=== PATIENT | female | born 1970 | race Two or more races ===

== ENCOUNTER 2024-05-16 03:58 | Inpatient (IN) | payer BC, OTHER ==
[~2024-05-16] VITALS: Ht 157.5 cm; Wt 181.0 kg
[2024-05-16 04:30] LABS: Basophils # (auto) 0.1 10 ^3/uL (0-0.2); Basophils % (auto) 0.2 % (0.0-2.0); Eosinophils # (auto) 0 10 ^3/uL (0-0.8); Hematocrit 38.5 % (36.0-46.0); Hemoglobin 12.8 g/dL (12.2-16.2); Lymphocytes # (auto) 1.5 10 ^3/uL (0.4-5.4); Lymphocytes % (auto) 6.6 % (10.0-50.0); Mean Corpuscular Hgb Conc. 33.4 g/dL (32.0-36.0); Monocytes % (auto) 4.7 % (0.0-12.0); Neutrophils # (auto) 19.6 10 ^3/uL (1.6-8.6); Neutrophils % (auto) 88.5 % (37.0-80.0); Nucleated Red Blood Cells % 0.1 %; Red Blood Cells 4.42 10^6/uL (4.0-5.20); Red Cell Distribution Width 14.7 % (11.8-14.3); White Blood Cell 22.2 10^3/uL (4.4-10.8)
[2024-05-16 04:39] LABS: Alkaline Phosphatase 79 U/L (46-116); Anion Gap 8 (5-15); Aspartate Aminotransferase < 8 U/L (13-40); BUN/Creatinine Ratio 20.5 (10.0-20.0); Blood Urea Nitrogen 25 mg/dL (9-23); Calcium 9.7 mg/dL (8.7-10.4); Carbon Dioxide 25 mmol/L (20-30); Chloride 96 mmol/L (98-107); Glucose 294 mg/dL (74-106); Lipase 41 U/L (12-53); Magnesium 1.9 mg/dL (1.6-2.6); Potassium 4.1 mmol/L (3.5-5.1); Sodium 129 mmol/L (136-145)
[2024-05-16 04:40] LABS: Bilirubin, Total 0.9 mg/dL (0.2-1.0); Total Protein 7.9 g/dL (5.7-8.2)
[2024-05-16 04:43] LABS: Alanine Aminotransferase < 9 U/L (7-40)
[2024-05-16 04:50] LABS: INR 1.03 (0.9-1.15); Partial Thromboplastin Time 29.9 SEC (24.5-34.5); Prothrombin Time 10.9 sec (9.3-11.8)
[2024-05-16 05:22] LABS: Urine Bacteria FEW /hpf (None Seen); Urine Blood Negative /uL (Negative); Urine Clarity Clear (Clear); Urine Color Light-Yellow (Yellow); Urine Protein, UAD 2+ (Negative); Urine Specific Gravity 1.022 (1.001-1.035); Urine Urobilinogen Normal (Negative); Urine WBC 9 /hpf (0 - 5); Urine pH 5.5 (5.0-9.0)
[2024-05-16] MEDS: PIPERACILLIN-TAZOB 3.375GM 100 ML IV ONE ×2 (07:25→16:42)
[2024-05-16] MEDS: KETOROLAC TROMETH 30 MG/ML 1ML VIAL IV ONE (07:30)
[2024-05-16 07:51] VITALS: PULSE 84; RESP 14; O2SAT 99
[2024-05-16] MEDS ORDERED: NITROGLYCERIN 0.4 MG SL TAB SL PRN (09:30)
[2024-05-16] MEDS ORDERED: DOCUSATE SOD 100 MG CAP PO PRN (09:30)
[2024-05-16] MEDS ORDERED: MORPHINE SULFATE INJ 2 MG/ml SYRG IV PRN (09:30)
[2024-05-16] MEDS: cefTRIAXone 1GM/50ML D5W 50 ML IV ONE (10:06)
[2024-05-16] MEDS: SODIUM CHLORIDE 0.9% 1,000 ML IV SCH (10:06)
[2024-05-16 10:45] LABS: Creatinine, Urine 66.82 mg/dL (30.0-125.0)
[2024-05-16 14:46] VITALS: O2SAT 98
[2024-05-16 15:04] VITALS: BP 163/68; PULSE 97; RESP 18; TEMP 101.7; O2SAT 100
[2024-05-16] MEDS ORDERED: DILT-40 PO (15:27)
[2024-05-16] MEDS ORDERED: LEVO175T4 PO (15:32)
[2024-05-16] MEDS ORDERED: FURO40TA4 PO (15:32)
[2024-05-16] MEDS ORDERED: DAPA1TAB4 PO (15:32)
[2024-05-16] MEDS ORDERED: SPIR25TA8 PO (15:32)
[2024-05-16] MEDS ORDERED: METF-370 PO (15:32)
[2024-05-16 16:42] VITALS: BP 165/72; PULSE 100; RESP 18; TEMP 99.5; O2SAT 100
[2024-05-16] MEDS: PANTOPRAZOLE 40 MG/10 ML VIAL INJ IV ONE (16:43)
[2024-05-16] MEDS: ACETAMINOPHEN 325 MG TAB PO ONE (16:43)
[2024-05-16 20:00] VITALS: PULSE 92; RESP 18; O2SAT 95
[2024-05-16 21:00] VITALS: BP 142/78; PULSE 92; RESP 18; TEMP 100.1; O2SAT 95
[2024-05-16] MEDS: PIPERACILLIN-TAZOB 3.375GM 100 ML IV SCH (21:46)
[2024-05-16] MEDS: MORPHINE SULFATE INJ 2 MG/ml SYRG IV PRN (21:47)
[2024-05-16] MEDS: ONDANSETRON HCL 4 MG/2 ML VIAL IV PRN (21:47)
[2024-05-17] VITALS (7 sets, daily range): BP systolic 126–151; BP diastolic 42–73; PULSE 90–110; RESP 16–20; TEMP 98–103; O2SAT 92–97
[2024-05-17 06:14] LABS: Hematocrit 37.6 % (36.0-46.0); Hemoglobin 12.6 g/dL (12.2-16.2); Mean Corpuscular Hemoglobin 29.6 pg (28.0-32.0); Mean Corpuscular Hgb Conc. 33.5 g/dL (32.0-36.0); Mean Corpuscular Volume 88.4 fL (80.0-100.0); Red Blood Cells 4.26 10^6/uL (4.0-5.20); Red Cell Distribution Width 15.1 % (11.8-14.3); White Blood Cell 27.1 10^3/uL (4.4-10.8)
[2024-05-17 06:23] LABS: Basophils % (manual) 0 (0.0-2.0); Blast Cells 0; Eosinophils % (manual) 0 (0-7); Metamyelocytes % 0; Myelocytes % 0; Promyelocytes % 0; Reactive Lymphocytes 0
[2024-05-17 06:30] LABS: Alanine Aminotransferase 14 U/L (7-40); Alkaline Phosphatase 107 U/L (46-116); Anion Gap 10 (5-15); BUN/Creatinine Ratio 25.4 (10.0-20.0); Calcium 9.2 mg/dL (8.5-10.1); Carbon Dioxide 25 mmol/L (20-30); Chloride 98 mmol/L (98-107); Glucose 229 mg/dL (74-106); Potassium 3.7 mmol/L (3.5-5.1); Sodium 133 mmol/L (136-145)
[2024-05-17 06:32] LABS: Albumin 3.7 g/dL (3.2-4.8); Aspartate Aminotransferase 34 U/L (13-40); Bilirubin, Total 0.5 mg/dL (0.2-1.0); Total Protein 6.9 g/dL (5.7-8.2)
[2024-05-17 06:40] LABS: Blood Urea Nitrogen 35 mg/dL (9-23)
[2024-05-17 06:57] LABS: Band Neutrophils % (manual) 6; Lymphocytes % (manual) 6 (10.0-50.0); Monocytes % (manual) 4 (0-12); Platelet Estimate Adequate
[2024-05-17 06:58] LABS: Large Platelets FEW
[2024-05-17] MEDS ORDERED: cefTRIAXone 1GM/50ML D5W 50 ML IV SCH (09:00)
[2024-05-17] MEDS: PANTOPRAZOLE 40 MG/10 ML VIAL INJ IV SCH (09:20)
[2024-05-17] MEDS: HYDROmorphone HCL 2 MG/ML VL/or syr IV ONE (11:45)
[2024-05-17] MEDS ORDERED: INSUINJ37 SC (12:05)
[2024-05-17] MEDS ORDERED: LISI10TA34 PO (12:05)
[2024-05-17] MEDS ORDERED: DULA1INJ SC (12:05)
[2024-05-17] MEDS ORDERED: METO-158 PO (12:05)
[2024-05-17] MEDS: SODIUM CHLORIDE 0.9% 1,000 ML IV ONE (12:16)
[2024-05-17] MEDS ORDERED: DEXTROSE (50%) 50ML SYRG IV PRN (15:15)
[2024-05-17] MEDS: D5W/ SOD CHL 0.9%/KCL 20MEQ 1,000 ML IV SCH (16:08)
[2024-05-17] MEDS: PIPERACILLIN-TAZOB 3.375GM 100 ML IV SCH (16:30)
[2024-05-17] MEDS: ACCU-CHEK COMFORT CURVE STRIP VI SCH (17:49)
[2024-05-17] MEDS: InsuLIN REG 1unit/0.01ml Soln (100units/ml) SC SCH (17:51)
[2024-05-17] MEDS: ACETAMINOPHEN 325 MG TAB PO PRN (21:20)
[2024-05-18] VITALS (8 sets, daily range): BP systolic 107–151; BP diastolic 56–76; PULSE 85–104; RESP 12–19; TEMP 97.2–99.2; O2SAT 91–99
[2024-05-18] MEDS ORDERED: BUPIVACAINE HCL 50 ML ONE (09:37)
[2024-05-18] MEDS ORDERED: DEXTROSE (50%) 50ML SYRG IV PRN (10:00)
[2024-05-18] MEDS: SOD CHL 0.9%/ KCL 20MEQ 1,000 ML IV SCH (10:00)
[2024-05-18] MEDS ORDERED: ceFAZolin 2 GM/D5W50ml 50 ML IV ONE (10:03)
[2024-05-18] MEDS ORDERED: fentaNYL CITRATE 100 MCG/2 ML VL ONE (10:24)
[2024-05-18] MEDS ORDERED: DexAMETHasone SOD PHOS 10MG/1ML VIAL INJ ONE (10:24)
[2024-05-18] MEDS ORDERED: ONDANSETRON HCL 4 MG/2 ML VIAL ONE (10:24)
[2024-05-18] MEDS ORDERED: PROPOFOL 10 MG/ML 20 ML IV ONE (10:24)
[2024-05-18] MEDS ORDERED: MEPERIDINE HCL (25 MG/ML) 1ML VIAL ONE (10:24)
[2024-05-18] MEDS ORDERED: MIDAZOLAM HCL 2MG/2ML 2ml VIAL (1mg/ml) ONE (10:24)
[2024-05-18] MEDS ORDERED: ONDANSETRON HCL 4 MG/2 ML VIAL IV ONE (12:00)
[2024-05-18] MEDS: ACCU-CHEK COMFORT CURVE STRIP VI SCH (12:00)
[2024-05-18] MEDS ORDERED: MORPHINE SULFATE 4 MG/ML SYR/VIAL IV PRN (12:00)
[2024-05-18] MEDS ORDERED: ePHEDrine SULFATE 50 MG/ML AMP IV PRN (12:00)
[2024-05-18] MEDS ORDERED: MIDAZOLAM HCL 2MG/2ML 2ml VIAL (1mg/ml) IV PRN (12:00)
[2024-05-18] MEDS ORDERED: HYDROmorphone HCL 2 MG/ML VL/or syr IV PRN (12:00)
[2024-05-18] MEDS ORDERED: LABETALOL HCL 5 MG/ML 4ML SYRINGE IV PRN (12:00)
[2024-05-18] MEDS: InsuLIN REG 1unit/0.01ml Soln (100units/ml) SC SCH (12:02)
[2024-05-18] MEDS: InsuLIN REG 1unit/0.01ml Soln (100units/ml) SC ONE (12:50)
[2024-05-18] MEDS: InsuLIN REG 1unit/0.01ml Soln (100units/ml) IV ONE (12:50)
[2024-05-18 16:44] LABS: Basophils # (auto) 0 10 ^3/uL (0-0.2); Eosinophils # (auto) 0 10 ^3/uL (0-0.8); Hematocrit 31.2 % (36.0-46.0); Hemoglobin 10.2 g/dL (12.2-16.2); Lymphocytes # (auto) 0.5 10 ^3/uL (0.4-5.4); Lymphocytes % (auto) 2.4 % (10.0-50.0); Mean Corpuscular Hemoglobin 28.9 pg (28.0-32.0); Mean Corpuscular Hgb Conc. 32.6 g/dL (32.0-36.0); Mean Corpuscular Volume 88.8 fL (80.0-100.0); Monocytes # (auto) 0.6 10 ^3/uL (0-1.3); Monocytes % (auto) 2.9 % (0.0-12.0); Neutrophils # (auto) 19.2 10 ^3/uL (1.6-8.6); Neutrophils % (auto) 94.7 % (37.0-80.0); Nucleated Red Blood Cells % 0.1 %; Red Blood Cells 3.51 10^6/uL (4.0-5.20); Red Cell Distribution Width 15.8 % (11.8-14.3); White Blood Cell 20.3 10^3/uL (4.4-10.8)
[2024-05-18 16:54] LABS: Potassium 3.8 mmol/L (3.5-5.1); Sodium 137 mmol/L (136-145)
[2024-05-18 16:55] LABS: Anion Gap 6 (5-15); Calcium 8.8 mg/dL (8.7-10.4); Carbon Dioxide 22 mmol/L (20-30)
[2024-05-18] MEDS: DIPHENOXYLATE W/ATROPINE 2.5 MG TAB PO PRN (16:57)
[2024-05-18] MEDS: metroNIDAZOLE 500MG/100ML 100 ML IV SCH (16:58)
[2024-05-18 17:00] LABS: BUN/Creatinine Ratio 30.9 (10.0-20.0); Glucose 262 mg/dL (74-106)
[2024-05-18 17:03] LABS: Blood Urea Nitrogen 47 mg/dL (9-23); Chloride 109 mmol/L (98-107)
[2024-05-18] MEDS: ACETAMINOPHEN 325 MG TAB PO PRN (18:22)
[2024-05-19] VITALS (7 sets, daily range): BP systolic 142–170; BP diastolic 10–89; PULSE 73–79; RESP 16–18; TEMP 98–98.8; O2SAT 98–100
[2024-05-19 07:09] LABS: Basophils # (auto) 0 10 ^3/uL (0-0.2); Eosinophils # (auto) 0 10 ^3/uL (0-0.8); Hematocrit 27.4 % (36.0-46.0); Lymphocytes # (auto) 0.7 10 ^3/uL (0.4-5.4); Lymphocytes % (auto) 3.8 % (10.0-50.0); Mean Corpuscular Hemoglobin 29.2 pg (28.0-32.0); Mean Corpuscular Hgb Conc. 32.8 g/dL (32.0-36.0); Monocytes # (auto) 0.5 10 ^3/uL (0-1.3); Monocytes % (auto) 2.8 % (0.0-12.0); Neutrophils # (auto) 16.2 10 ^3/uL (1.6-8.6); Neutrophils % (auto) 93.4 % (37.0-80.0); Nucleated Red Blood Cells % 0.1 %; Red Blood Cells 3.08 10^6/uL (4.0-5.20); Red Cell Distribution Width 15.9 % (11.8-14.3); White Blood Cell 17.4 10^3/uL (4.4-10.8)
[2024-05-19 07:16] LABS: Alanine Aminotransferase 45 U/L (7-40); Alkaline Phosphatase 122 U/L (46-116); Anion Gap 6 (5-15); Aspartate Aminotransferase 59 U/L (13-40); BUN/Creatinine Ratio 35.8 (10.0-20.0); Bilirubin, Total 0.6 mg/dL (0.2-1.0); Blood Urea Nitrogen 48 mg/dL (9-23); Calcium 8.4 mg/dL (8.5-10.1); Carbon Dioxide 22 mmol/L (20-30); Chloride 108 mmol/L (98-107); Glucose 272 mg/dL (74-106); Potassium 4.1 mmol/L (3.5-5.1); Sodium 136 mmol/L (136-145); Total Protein 5.6 g/dL (5.7-8.2)
[2024-05-19] MEDS: cefTRIAXone 1GM/50ML D5W 50 ML IV SCH (09:15)
[2024-05-19] MEDS: SODIUM CHLORIDE 0.9% 1,000 ML IV SCH (09:18)
[2024-05-19] MEDS ORDERED: ENOXAPARIN SOD 40 MG/0.4 ML SYRINGE SC SCH (10:00)
[2024-05-19] MEDS ORDERED: METOPROLOL TARTRATE 50 MG TAB PO ONE (13:00)
[2024-05-19] MEDS: hydrALAZINE HCL 20 MG/ML VL IV PRN (13:27)
[2024-05-19] MEDS: METOPROLOL TARTRATE 50 MG TAB PO SCH (21:53)
[2024-05-19] MEDS: INSULIN LANTUS (GLARGINE) 1 /0.01ml (100units/ml) SC SCH (22:07)
[2024-05-20] VITALS (7 sets, daily range): BP systolic 141–153; BP diastolic 70–80; PULSE 63–69; RESP 17–20; TEMP 97.8–98.3; O2SAT 93–99
[2024-05-20 06:16] LABS: Basophils # (auto) 0 10 ^3/uL (0-0.2); Basophils % (auto) 0.1 % (0.0-2.0); Eosinophils # (auto) 0 10 ^3/uL (0-0.8); Eosinophils % (auto) 0.2 % (0.0-7.0); Hemoglobin 9.7 g/dL (12.2-16.2); Lymphocytes # (auto) 1.4 10 ^3/uL (0.4-5.4); Lymphocytes % (auto) 9.6 % (10.0-50.0); Mean Corpuscular Hemoglobin 29.6 pg (28.0-32.0); Mean Corpuscular Hgb Conc. 33.4 g/dL (32.0-36.0); Mean Corpuscular Volume 88.5 fL (80.0-100.0); Monocytes # (auto) 1.1 10 ^3/uL (0-1.3); Monocytes % (auto) 7.7 % (0.0-12.0); Neutrophils # (auto) 11.8 10 ^3/uL (1.6-8.6); Neutrophils % (auto) 82.4 % (37.0-80.0); Nucleated Red Blood Cells % 0.1 %; Red Blood Cells 3.28 10^6/uL (4.0-5.20); Red Cell Distribution Width 15.8 % (11.8-14.3); White Blood Cell 14.3 10^3/uL (4.4-10.8)
[2024-05-20 06:34] LABS: Alanine Aminotransferase 44 U/L (7-40); Albumin 2.9 g/dL (3.2-4.8); Alkaline Phosphatase 140 U/L (46-116); Anion Gap 5 (5-15); Aspartate Aminotransferase 45 U/L (13-40); BUN/Creatinine Ratio 44.7 (10.0-20.0); Bilirubin, Total 0.5 mg/dL (0.2-1.0); Blood Urea Nitrogen 38 mg/dL (9-23); Calcium 8.4 mg/dL (8.5-10.1); Carbon Dioxide 24 mmol/L (20-30); Chloride 110 mmol/L (98-107); Glucose 135 mg/dL (74-106); Potassium 3.6 mmol/L (3.5-5.1); Sodium 139 mmol/L (136-145); Total Protein 5.4 g/dL (5.7-8.2)
[2024-05-20] MEDS: SPIRONOLACTONE 25 MG TAB PO SCH (09:03)
[2024-05-20] MEDS: LISINOPRIL 5 MG TAB PO SCH (09:03)
[2024-05-20] MEDS ORDERED: METR-344 PO (11:58)
[2024-05-20] MEDS ORDERED: LEVO500T91 PO (11:58)
[2024-05-20] MEDS ORDERED: HYDR-4902 PO (11:58)
== END 2024-05-20 16:41 | disposition home or self-care (01) | DRG 853 ==
LOC: ER 04:03 → OVERFLOW 09:33 → WEST WING 14:42
PROVIDERS: ADMIT Nurse Practitioner Family; ATTEND Nurse Practitioner Acute Care
PROC: 0FT44ZZ Resection of Gallbladder, Percutaneous Endoscopic Approach (ICD-10-PCS; principal; 2024-05-18 10:25)
DX: A41.9 Sepsis, unspecified organism (principal); N17.0 Acute kidney failure with tubular necrosis; K80.00 Calculus of gallbladder with acute cholecystitis without obstruction; E87.1 Hypo-osmolality and hyponatremia; N10 Acute pyelonephritis; Z68.45 Body mass index [BMI] 70 or greater, adult; K82.A1 Gangrene of gallbladder in cholecystitis; I10 Essential (primary) hypertension; E03.9 Hypothyroidism, unspecified; K52.9 Noninfective gastroenteritis and colitis, unspecified; E66.9 Obesity, unspecified; E87.8 Other disorders of electrolyte and fluid balance, not elsewhere classified; E11.9 Type 2 diabetes mellitus without complications; Z83.3 Family history of diabetes mellitus; Z98.891 History of uterine scar from previous surgery
CPT/HCPCS: 36415; 71045; 74176; 76705; 78226; 80048; 80053; 81001; 82247; 82570; 82962; 83036; 83690; 83735; 83880; 83930; 83935; 84300; 84484; 85007; 85025; 85027; 85610; 85730; 86850; 86900; 86901; 87040; 87070; 87075; 87086; 87205; 93005; 96365; 96375; C9113; G0378; J1100; J1815; J1885; J2250; J2405; J2543; J2704; J3490

== ENCOUNTER 2024-05-25 14:39 | Inpatient (IN) | payer BC ==
[~2024-05-25] VITALS: Ht 157.5 cm; Wt 173.8 kg
[~2024-05-25 14:39] MED LIST: DAPA1TAB4 PO; DILT-40 PO; DULA1INJ SC; FURO40TA4 PO; HYDR-4902 PO; INSUINJ37 SC; LEVO175T4 PO; LEVO500T91 PO; LISI10TA34 PO; METF-370 PO; METO-158 PO; METR-344 PO; SPIR25TA8 PO
[2024-05-25 15:40] LABS: Urine Bacteria None Seen /hpf (None Seen)
[2024-05-25 15:52] LABS: Hematocrit 32.3 % (36.0-46.0); Hemoglobin 10.4 g/dL (12.2-16.2); Mean Corpuscular Hemoglobin 28.3 pg (28.0-32.0); Mean Corpuscular Hgb Conc. 32.2 g/dL (32.0-36.0); Mean Corpuscular Volume 87.9 fL (80.0-100.0); Red Blood Cells 3.68 10^6/uL (4.0-5.20); Red Cell Distribution Width 14.6 % (11.8-14.3); White Blood Cell 18.7 10^3/uL (4.4-10.8)
[2024-05-25 15:55] LABS: Basophils % (manual) 0 (0.0-2.0); Blast Cells 0; Eosinophils % (manual) 0 (0-7); Myelocytes % 0; Promyelocytes % 0; Reactive Lymphocytes 0
[2024-05-25 16:05] LABS: Urine Blood Negative /uL (Negative); Urine Clarity Clear (Clear); Urine Color Colorless (Yellow); Urine Protein, UAD Negative (Negative); Urine Specific Gravity 1.005 (1.001-1.035); Urine Urobilinogen Normal (Negative); Urine WBC 3 /hpf (0 - 5)
[2024-05-25 16:09] LABS: Alanine Aminotransferase 19 U/L (7-40); Albumin 3.3 g/dL (3.2-4.8); Alkaline Phosphatase 109 U/L (46-116); Anion Gap 5 (5-15); Aspartate Aminotransferase 15 U/L (13-40); BUN/Creatinine Ratio 14.8 (10.0-20.0); Bilirubin, Total 0.3 mg/dL (0.2-1.0); Blood Urea Nitrogen 17 mg/dL (9-23); Calcium 8.7 mg/dL (8.5-10.1); Carbon Dioxide 29 mmol/L (20-30); Chloride 101 mmol/L (98-107); Glucose 216 mg/dL (74-106); Potassium 3.8 mmol/L (3.5-5.1); Sodium 135 mmol/L (136-145); Total Protein 6.1 g/dL (5.7-8.2)
[2024-05-25 16:54] LABS: Lipase 40 U/L (12-53)
[2024-05-25 17:12] VITALS: PULSE 94; RESP 16; O2SAT 99
[2024-05-25 17:36] LABS: Band Neutrophils % (manual) 3; Lymphocytes % (manual) 8 (10.0-50.0); Metamyelocytes % 1; Platelet Estimate Increased
[2024-05-25 17:37] LABS: Anisocytosis Slight; Monocytes % (manual) 6 (0-12)
[2024-05-25] MEDS: PIPERACILLIN-TAZOB 3.375GM 100 ML IV ONE (18:22)
[2024-05-25 19:35] VITALS: PULSE 88; RESP 16; O2SAT 96
[2024-05-25] MEDS ORDERED: HYDROcodone-ACET 5/325MG TAB PO PRN (20:45)
[2024-05-25] MEDS ORDERED: ACETAMINOPHEN 325 MG TAB PO PRN (20:45)
[2024-05-25] MEDS ORDERED: DEXTROSE (50%) 50ML SYRG IV PRN (20:45)
[2024-05-25] MEDS ORDERED: DOCUSATE SOD 100 MG CAP PO PRN (20:45)
[2024-05-25] MEDS ORDERED: ONDANSETRON HCL 4 MG/2 ML VIAL IV PRN (20:45)
[2024-05-25] MEDS: IOHEXOL 300 MG/ML 100ML BOTTLE IJ ONE (21:46)
[2024-05-25] MEDS: SODIUM CHLORIDE 0.9% 1,000 ML IV SCH (22:04)
[2024-05-25] MEDS: METOPROLOL TARTRATE 25 MG TAB PO SCH (22:07)
[2024-05-25] MEDS ORDERED: NITROGLYCERIN 0.4 MG SL TAB SL PRN (23:30)
[2024-05-25] MEDS ORDERED: MORPHINE SULFATE INJ 2 MG/ml SYRG IV PRN (23:30)
[2024-05-26] VITALS (9 sets, daily range): BP systolic 119–157; BP diastolic 66–85; PULSE 77–98; RESP 16–22; TEMP 98.3–99; O2SAT 0–98
[2024-05-26] MEDS: ACCU-CHEK COMFORT CURVE STRIP VI SCH (00:21)
[2024-05-26] MEDS: InsuLIN REG 1unit/0.01ml Soln (100units/ml) SC SCH (00:58)
[2024-05-26] MEDS: PIPERACILLIN-TAZOB 3.375GM 100 ML IV SCH (03:14)
[2024-05-26] MEDS: LEVOTHYROXINE SODIUM 50 MCG TAB PO SCH (05:56)
[2024-05-26 06:27] LABS: Basophils # (auto) 0 10 ^3/uL (0-0.2); Basophils % (auto) 0.2 % (0.0-2.0); Lymphocytes # (auto) 1.9 10 ^3/uL (0.4-5.4); Monocytes # (auto) 1.4 10 ^3/uL (0-1.3); Red Blood Cells 3.18 10^6/uL (4.0-5.20)
[2024-05-26 06:31] LABS: Eosinophils # (auto) 0.1 10 ^3/uL (0-0.8); Eosinophils % (auto) 0.8 % (0.0-7.0); Hemoglobin 9.3 g/dL (12.2-16.2); Lymphocytes % (auto) 11.2 % (10.0-50.0); Mean Corpuscular Hemoglobin 29.3 pg (28.0-32.0); Mean Corpuscular Hgb Conc. 33.2 g/dL (32.0-36.0); Mean Corpuscular Volume 88.2 fL (80.0-100.0); Monocytes % (auto) 8.3 % (0.0-12.0); Neutrophils # (auto) 13.3 10 ^3/uL (1.6-8.6); Neutrophils % (auto) 79.5 % (37.0-80.0); Red Cell Distribution Width 14.9 % (11.8-14.3); White Blood Cell 16.7 10^3/uL (4.4-10.8)
[2024-05-26 06:48] LABS: Alanine Aminotransferase 13 U/L (7-40); Albumin 2.8 g/dL (3.2-4.8); Alkaline Phosphatase 85 U/L (46-116); Anion Gap 2 (5-15); Aspartate Aminotransferase 11 U/L (13-40); BUN/Creatinine Ratio 13.6 (10.0-20.0); Bilirubin, Total 0.3 mg/dL (0.2-1.0); Blood Urea Nitrogen 14 mg/dL (9-23); Calcium 8.8 mg/dL (8.7-10.4); Carbon Dioxide 32 mmol/L (20-30); Chloride 103 mmol/L (98-107); Glucose 104 mg/dL (74-106); Potassium 3.6 mmol/L (3.5-5.1); Sodium 137 mmol/L (136-145); Total Protein 5.4 g/dL (5.7-8.2)
[2024-05-26] MEDS: LISINOPRIL 5 MG TAB PO SCH (10:00)
[2024-05-26] MEDS: ENOXAPARIN SOD 40 MG/0.4 ML SYRINGE SC SCH (10:02)
[2024-05-27] VITALS (10 sets, daily range): BP systolic 135–179; BP diastolic 70–85; PULSE 78–89; RESP 16–20; TEMP 97.8–99.3; O2SAT 0–97
[2024-05-27] MEDS ORDERED: cloNIDine HCL 0.1 MG TAB PO PRN (14:30)
[2024-05-27] MEDS: FUROSEMIDE 20 MG TAB PO SCH (16:02)
[2024-05-28] VITALS (8 sets, daily range): BP systolic 119–160; BP diastolic 56–76; PULSE 74–91; RESP 17–20; TEMP 98–98.9; O2SAT 92–100
[2024-05-28] MEDS: LEVOTHYROXINE SODIUM 50 MCG TAB PO SCH (05:14)
[2024-05-28] MEDS: SPIRONOLACTONE 25 MG TAB PO SCH (09:17)
[2024-05-28] MEDS: POTASSIUM CHL 20 Meq TABLET PO SCH (09:17)
[2024-05-28 11:28] LABS: Basophils # (auto) 0.1 10 ^3/uL (0-0.2); Basophils % (auto) 0.3 % (0.0-2.0); Eosinophils # (auto) 0.2 10 ^3/uL (0-0.8); Hematocrit 28.6 % (36.0-46.0); Hemoglobin 9.6 g/dL (12.2-16.2); Lymphocytes # (auto) 1.4 10 ^3/uL (0.4-5.4); Lymphocytes % (auto) 9.1 % (10.0-50.0); Mean Corpuscular Hemoglobin 29.7 pg (28.0-32.0); Mean Corpuscular Hgb Conc. 33.5 g/dL (32.0-36.0); Mean Corpuscular Volume 88.6 fL (80.0-100.0); Monocytes % (auto) 6.6 % (0.0-12.0); Neutrophils # (auto) 13.2 10 ^3/uL (1.6-8.6); Nucleated Red Blood Cells % 0.1 %; Red Blood Cells 3.23 10^6/uL (4.0-5.20); Red Cell Distribution Width 14.7 % (11.8-14.3); White Blood Cell 15.9 10^3/uL (4.4-10.8)
[2024-05-29 01:00] VITALS: BP 148/73; PULSE 72; RESP 18; TEMP 98.2; O2SAT 95
[2024-05-29 05:00] VITALS: BP 153/72; PULSE 78; RESP 18; TEMP 98.3; O2SAT 94
[2024-05-29 08:00] VITALS: PULSE 77
[2024-05-29 09:00] VITALS: BP 115/75; PULSE 73; RESP 18; TEMP 98.3; O2SAT 96
[2024-05-29 13:00] VITALS: BP 118/70; PULSE 94; RESP 18; TEMP 98.7; O2SAT 98
[2024-05-29] MEDS ORDERED: LEVO500T91 PO (13:06)
[2024-05-29] MEDS ORDERED: METR-344 PO (13:06)
== END 2024-05-29 14:30 | disposition home or self-care (01) | DRG 863 ==
LOC: ER 14:39 → TELE-WESTW 23:23 → TELE 23:23 → UNDODEPER 05-26 01:34 → TELE-WESTW 05-26 02:40
PROVIDERS: ADMIT Nurse Practitioner Family; ATTEND Family Medicine
DX: T81.49XA Infection following a procedure, other surgical site, initial encounter (principal); Z68.45 Body mass index [BMI] 70 or greater, adult; E11.9 Type 2 diabetes mellitus without complications; E86.0 Dehydration; I50.9 Heart failure, unspecified; I11.0 Hypertensive heart disease with heart failure; E66.01 Morbid (severe) obesity due to excess calories; Z79.4 Long term (current) use of insulin; Z90.49 Acquired absence of other specified parts of digestive tract; Z83.3 Family history of diabetes mellitus; Y84.8 Other medical procedures as the cause of abnormal reaction of the patient, or of later complication, without mention of misadventure at the time of the procedure; Y92.89 Other specified places as the place of occurrence of the external cause
CPT/HCPCS: 36415; 74177; 80053; 81001; 82962; 83605; 83690; 83880; 84443; 85007; 85025; 85027; 87040; 87081; 96365; 96366; G0378; J1815; J2543